=== PATIENT | female | born 1950 | race Caucasian/White ===

== ENCOUNTER → 2018-12-12 | Outpatient (CLI) | payer MEDICARE ==
[2018-12-12 23:29] LABS: Albumin 4.1 g/dL (3.80-4.90); Albumin/Globulin Ratio 1.86 (1.60-3.17); Anion Gap 7.2 mmol/L (4.00-12.00); Calcium 9.3 mg/dL (8.7-10.3); Carbon Dioxide 26.8 mmol/L (21.6-31.8); Globulin 2.2 g/dL (1.6-3.3); Potassium 4.2 mmol/L (3.5-5.5); Total Bilirubin 0.3 mg/dL (0.3-1.2); Total Protein 6.3 g/dL (6.2-8.2)
== END | disposition home or self-care (01) ==
LOC: LABWHC1 16:37
PROVIDERS: ATTEND Surgery
DX: K21.0 Gastro-esophageal reflux disease with esophagitis (principal)
CPT/HCPCS: 36415; 80053

== ENCOUNTER → 2018-12-12 | Outpatient (CLI) | payer MEDICARE ==
[2018-12-12 17:19] LABS: Basophils % (A) 1 %; Eosinophils # (A) 0.2 k/uL (0-0.7); Eosinophils % (A) 4 %; HCT 38.5 % (34.0-46.0); HGB 11.9 gm/dL (11.4-16.0); Lymphocytes # (A) 2.2 k/uL (1.0-4.8); Lymphocytes % (A) 34 %; MCH 27.4 pg (25.0-35.0); MCHC 30.9 g/dL (31.0-37.0); MCV 88.5 fL (80.0-100.0); Mean Platelet Volume 8.3; Monocytes # (A) 0.5 k/uL (0-1.0); Monocytes % (A) 7 %; Neutrophils # (A) 3.4 k/uL (1.3-7.7); Neutrophils % (A) 52 %; Platelet Count 224 k/uL (150-450); RBC 4.35 m/uL (3.80-5.40); RDW 13.8 % (11.5-15.5); WBC 6.7 k/uL (3.8-10.6)
== END | disposition home or self-care (01) ==
LOC: LABPAT 16:34
PROVIDERS: ATTEND Surgery
DX: Z01.818 Encounter for other preprocedural examination (principal); Z01.812 Encounter for preprocedural laboratory examination; K21.9 Gastro-esophageal reflux disease without esophagitis; D64.9 Anemia, unspecified
CPT/HCPCS: 36415; 85025; 93005

== ENCOUNTER → 2018-12-17 | Outpatient (CLI) | payer MEDICARE | END | disposition home or self-care (01) | LOC: LABWHC1 12:00 | PROVIDERS: ATTEND Surgery | DX: Z01.812 Encounter for preprocedural laboratory examination (principal); K21.9 Gastro-esophageal reflux disease without esophagitis; D64.9 Anemia, unspecified | CPT/HCPCS: 86850; 86900; 86901 ==

== ENCOUNTER 2018-12-25 06:19 | Day surgery (SDC) | payer MEDICARE ==
[~2018-12-25 06:19] MED LIST: LIDOCAINE 1% 20 ML VIAL (10MG/ML) FOR IV START INTRADERMA PRN; ONDANSETRON 4 MG/2 ML VIAL IVP PRN; SCOPOLAMINE 1.5MG/72HR PATCH TRANSDERM ONE; ceFAZolin IN SWFI 2 GM/20 ML SYRINGE IVP ONE
[2018-12-25] MEDS: LACTATED RINGERS 1,000 ML IV SCH (07:05)
[2018-12-25] MEDS ORDERED: LIDOCAINE 1% 20 ML VIAL (10MG/ML) FOR IV START INTRADERMA ONE (07:05)
[2018-12-25] MEDS: ONDANSETRON 4 MG/2 ML VIAL IVP ONE ×2 (07:16→14:11)
[2018-12-25] MEDS: HEPARIN SODIUM,PORCINE 5,000 UNIT/ML 1 ML VIAL SQ ONE ×2 (07:16→14:11)
[2018-12-25 07:17] LABS: Glucose,Whole Blood 95 mg/dL (75-99)
[2018-12-25] MEDS ORDERED: DEXAMETHASONE SOD PHOSPHATE 10 MG/ML 1 ML VIAL IV ONE (07:17)
--- NOTE | 2018-12-25 07:54 | P.GSHP ---
History of Present Illness H&P Date: 12/25/18 Chief Complaint: . This is a 68-year-old female with long-standing problems with reflux esophagitis. Patient's been refractory to medical therapy. She does today for laparoscopic Charley fundoplication.The patient has had long-standing problems with reflux esophagitis. The patient underwent recent EGD is found have evidence of esophagitis. Patient has been well informed on the procedure of laparoscopic Charley fundoplication. The patient is aware the risk of the conversion to the open procedure, risk of injury to the stomach, liver and spleen. The patient is also a risk of recurrent GERD and dysphagia symptoms. The patient understands there is a postoperative diet of full liquids for 2 weeks after surgery. 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-did not show on later MRI/CT History of Any Multi-Drug Resistant Organisms: MRSA Date of last positivie culture/infection: 2009 MDRO Source:: groin Past Surgical History: Cholecystectomy, Heart Catheterization, Hernia Repair, Hysterectomy Additional Past Surgical History / Comment(s): sinus surgery, EGD, colonsocopy, heart cath 2009 Past Anesthesia/Blood Transfusion Reactions: Previous Problems w/ Anesthesia, Postoperative Nausea & Vomiting (PONV) Additional Past Anesthesia/Blood Transfusion Reaction / Comment(s): general anesthesia caused memory loss for 6 months "I was too far under" Smoking Status: Former smoker - Past Family History Mother Family Medical History: No Reported History Medications and Allergies Home Medications Medication Instructions Recorded Confirmed Type Acetaminophen [Tylenol Extra 1,000 mg PO DIRECTED PRN 12/20/18 12/25/18 History Strength] Famotidine [Pepcid] 20 mg PO BID 12/20/18 12/25/18 History Fexofenadine HCl [Анна Allergy] 180 mg PO DAILY PRN 12/20/18 12/25/18 History Lidocaine HCl [Aspercreme] 1 applic TOPICAL DIRECTED PRN 12/20/18 12/20/18 History Metamucil(Dose Unknown) 1 applicate PO DIRECTED PRN 12/20/18 12/25/18 History Potassium Chloride 10 meq PO DAILY 12/20/18 12/25/18 History Ranitidine HCl [Zantac] 150 mg PO 1200 PRN 12/20/18 12/25/18 History Torsemide [Demadex] 10 mg PO DAILY 12/20/18 12/20/18 History Wp Thyroid 81.25 mg PO QAM 12/20/18 12/25/18 History clonazePAM 0.5 mg PO HS 12/20/18 12/25/18 History Allergies Allergy/AdvReac Type Severity Reaction Status Date / Time acetaminophen [From Vicodin] Allergy Abdominal Verified 12/25/18 06:47 Pain amitriptyline [From Elavil] Allergy palpitations/high Verified 12/25/18 06:47 BP Antifungal - Imidazole Allergy throat Verified 12/25/18 06:47 swells ciprofloxacin [From Cipro] Allergy Rapid Verified 12/25/18 06:47 Heart Rate clarithromycin [From Biaxin] Allergy Vomiting Verified 12/25/18 06:47 Corticosteroids Allergy high BP Verified 12/25/18 06:47 (Glucocorticoids) hydrocodone [From Vicodin] Allergy Abdominal Verified 12/25/18 06:47 Pain levofloxacin [From Levaquin] Allergy Rapid Verified 12/25/18 06:47 Heart Rate Penicillins Allergy Itching/hiv Verified 12/25/18 06:47 es Surgical - Exam Vital Signs Temp Pulse Resp BP Pulse Ox 97.0 F L 65 16 132/68 97 12/25/18 06:56 12/25/18 06:56 12/25/18 06:56 12/25/18 06:56 12/25/18 06:56 - General well developed, well nourished, no distress - Eyes PERRL - ENT normal pinna - Neck no masses - Respiratory normal expansion - Cardiovascular Rhythm: regular - Abdomen Abdomen: soft, non tender Assessment and Plan Assessment: GERD. We'll perform laparoscopic Charley fundoplication.
[2018-12-25] MEDS ORDERED: VECURONIUM 10 MG VIAL IV ONE (07:58)
[2018-12-25] MEDS ORDERED: GLYCOPYRROLATE 0.2 MG/ML 2 ML VIAL ONE (07:58)
[2018-12-25] MEDS ORDERED: fentaNYL (PF) 50 MCG/ML 2 ML AMP ONE (07:58)
[2018-12-25] MEDS ORDERED: MIDAZOLAM 2 MG/2 ML VIAL ONE (07:58)
[2018-12-25] MEDS ORDERED: SUCCINYLCHOLINE CHLORIDE 100 MG/5 ML SYR IV ONE (07:58)
[2018-12-25] MEDS ORDERED: PROPOFOL 10 MG/ML 20 ML VIAL IV ONE (07:58)
[2018-12-25] MEDS ORDERED: NEOSTIGMINE 1 MG/ML 10 ML VIAL ONE (07:58)
[2018-12-25] MEDS ORDERED: LIDOCAINE 1% INJ 10MG/ML (20 ML MDV) ONE (07:58)
[2018-12-25] MEDS ORDERED: BUPIVACAIN-EPI 0.25%-1:200,000 30 ML VIAL SQ ONE ×2 (08:26→08:35)
[2018-12-25] MEDS ORDERED: ACETAMINOPHEN TAB 325 MG TAB PO PRN (09:07)
[2018-12-25] MEDS: HYDROmorphone 0.5 MG/0.5 ML SYRINGE IVP PRN ×4 (09:13→11:20)
[2018-12-25] MEDS ORDERED: LACTATED RINGERS 1,000 ML IV ONE ×2 (10:05)
[2018-12-25] MEDS ORDERED: MIDAZOLAM (PF) 2 MG/2 ML VIAL IVP ONE (10:12)
[2018-12-25] MEDS ORDERED: ONDANSETRON 4 MG/2 ML VIAL IVP ONE (11:24)
[2018-12-25 11:46] LABS: Glucose,Whole Blood 132 mg/dL (75-99)
[2018-12-25] MEDS: D5-0.45% NACL WITH KCL 20MEQ/L 1,000 ML IV SCH ×2 (14:28→22:12)
[2018-12-25 17:25] VITALS: BMI 25.9
[2018-12-25] MEDS: ONDANSETRON 4 MG/2 ML VIAL IVP PRN (17:29)
[2018-12-25] MEDS ORDERED: TRIMETHOBENZAMIDE 100 MG/ML 2 ML VIAL IM PRN (22:06)
[2018-12-25] MEDS ORDERED: clonazePAM 0.5 MG TAB PO SCH (22:15)
[2018-12-26] MEDS: ONDANSETRON 4 MG/2 ML VIAL IVP PRN ×3 (00:40→12:51)
--- NOTE | 2018-12-26 01:26 | P.CONS ---
History of Present Illness - Reason for Consult Consult date: 12/25/18 Medical management of asthma, hypothyroidism and other medical problems - Chief Complaint Status post Charley fundoplication surgery - History of Present Illness Patient is a 68-year-old female with a known history of severe GERD symptoms, asthma, hypothyroidism, hiatal hernia and history of ulcer and other multiple medical problems was admitted to the hospital for laparoscopic Charley fundoplica tion surgery. Patient has been having severe GERD symptoms and reflux esophagitis. Currently denied any complaints of chest pain or shortness of breath. Patient is complaining of nausea and episode of emesis today afternoon. No fever no chills. Abdominal pain is controlled with medications. Patient does have some headache. Patient is able to pass flatus. Tolerating liquids. Blood pressure is in the lower side now. Review of Systems Constitutional: Patient denies any fever or chills . No generalized weakness or weight loss. Abdomen: Agent does have nausea and vomiting and abdominal soreness. No diarrhea. Cardiovascular: Patient denies any chest pain or short of breath no palpitations. Respiratory: patient denied any cough is from production. No shortness of breath Neurologic: Patient denied any numbness or tingling headache. Musculoskeletal: Patient denies any complaints of joint swelling or deformity. Skin: Negative Psychiatric: Negative Endocrine: No heat or cold intolerance. No recent weight gain. Genitourinary: No dysuria or hematuria. 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-did not show on later MRI/CT History of Any Multi-Drug Resistant Organisms: MRSA Year Discovered:: 2009 MDRO Source:: groin Past Surgical History: Cholecystectomy, Heart Catheterization, Hernia Repair, Hysterectomy Additional Past Surgical History / Comment(s): sinus surgery, EGD, colonsocopy, heart cath 2009 Past Anesthesia/Blood Transfusion Reactions: Previous Problems w/ Anesthesia, Postoperative Nausea & Vomiting (PONV) Additional Past Anesthesia/Blood Transfusion Reaction / Comm: general anesthesia caused memory loss for 6 months "I was too far under" Past Psychological History: No Psychological Hx Reported Smoking Status: Former smoker Past Alcohol Use History: None Reported Additional Past Alcohol Use History / Comment(s): quit smoking 6 yrs ago, smoked for 12 years Past Drug Use History: None Reported - Past Family History Mother Family Medical History: No Reported History Medications and Allergies Home Medications Medication Instructions Recorded Confirmed Type Acetaminophen [Tylenol Extra 1,000 mg PO DIRECTED PRN 12/20/18 12/25/18 History Strength] Famotidine [Pepcid] 20 mg PO BID 12/20/18 12/25/18 History Fexofenadine HCl [Анна Allergy] 180 mg PO DAILY PRN 12/20/18 12/25/18 History Lidocaine HCl [Aspercreme] 1 applic TOPICAL DIRECTED PRN 12/20/18 12/20/18 History Metamucil(Dose Unknown) 1 applicate PO DIRECTED PRN 12/20/18 12/25/18 History Potassium Chloride 10 meq PO DAILY 12/20/18 12/25/18 History Ranitidine HCl [Zantac] 150 mg PO 1200 PRN 12/20/18 12/25/18 History Torsemide [Demadex] 10 mg PO DAILY 12/20/18 12/20/18 History Wp Thyroid 81.25 mg PO QAM 12/20/18 12/25/18 History clonazePAM 0.5 mg PO HS 12/20/18 12/25/18 History Allergies Allergy/AdvReac Type Severity Reaction Status Date / Time acetaminophen [From Vicodin] Allergy Abdominal Verified 12/25/18 06:47 Pain amitriptyline [From Elavil] Allergy palpitations/high Verified 12/25/18 06:47 BP Antifungal - Imidazole Allergy throat Verified 12/25/18 06:47 swells ciprofloxacin [From Cipro] Allergy Rapid Verified 12/25/18 06:47 Heart Rate clarithromycin [From Biaxin] Allergy Vomiting Verified 12/25/18 06:47 Corticosteroids Allergy high BP Verified 12/25/18 06:47 (Glucocorticoids) hydrocodone [From Vicodin] Allergy Abdominal Verified 12/25/18 06:47 Pain levofloxacin [From Levaquin] Allergy Rapid Verified 12/25/18 06:47 Heart Rate Penicillins Allergy Itching/hiv Verified 12/25/18 06:47 es Physical Exam Vitals: Vital Signs Temp Pulse Pulse Pulse Resp BP BP 12/25/18 13:00 67 14 110/68 12/25/18 12:05 16 12/25/18 12:00 97.7 F 78 16 118/80 12/25/18 11:15 60 16 139/65 12/25/18 10:45 57 L 18 148/62 12/25/18 10:15 55 L 18 155/71 12/25/18 10:00 49 L 18 149/71 12/25/18 09:43 48 L 16 162/75 12/25/18 09:28 50 L 18 159/70 12/25/18 09:13 69 18 170/74 12/25/18 08:58 97.8 F 74 16 152/64 12/25/18 06:56 97.0 F L 65 16 132/68 Pulse Ox 12/25/18 13:00 99 12/25/18 12:05 96 12/25/18 12:00 90 L 12/25/18 11:15 99 12/25/18 10:45 100 12/25/18 10:15 100 12/25/18 10:00 100 12/25/18 09:43 100 12/25/18 09:28 100 12/25/18 09:13 97 12/25/18 08:58 95 12/25/18 06:56 97 Intake and Output 12/25/18 12/25/18 12/25/18 06:59 14:59 22:59 Intake Total 1350 Output Total 5 400 Balance 1345 -400 Intake: IV 1350 Output: Urine 400 Estimated Blood Loss 5 Other: # Voids 1 Weight 65.771 kg PHYSICAL EXAMINATION: Patient is lying in the bed comfortably, no acute distress, awake alert and oriented.. HEENT: Normocephalic. Neck is supple. Pupils reactive. Nostrils clear. Oral cavity is moist. Ears reveal no drainage. Neck reveals no JVD, carotid bruits, or thyromegaly. CHEST EXAMINATION: Trachea is central. Symmetrical expansion. Lung [place] clear to auscultation and percussion. CARDIAC: Normal S1, S2 with no gallops. No murmurs ABDOMEN: Soft. Bowel sounds normal. No organomegaly. No abdominal bruits. Extremities: reveal no edema. No clubbing or cyanosis Neurologically awake, alert, oriented x3 with well-coordinated movements. No focal deficits noted Skin: No rash or skin lesions. Psychiatric: Coperative. Nonsuicidal Musculoskeletal: No joint swelling or deformity. Normal range of motion. Results Labs: Abnormal Lab Results - Last 24 Hours (Table) 12/25/18 Range/Units 11:28 POC Glucose (mg/dL) 132 H (75-99) mg/dL Assessment and Plan Assessment: Hiatal hernia with reflux esophagitis. Currently status post Charley fundoplication postoperative day 0. Headache and nausea likely due to anesthesia and pain medications. Continue with symptomatic management. Osteoarthritis Hypothyroidism Asthma stable History of MS Previous history of smoking Plan: Patient be continued on gentle hydration and symptomatic management for nausea and vomiting. We will limit narcotic pain medication use. Continue with home medications including thyroid supplement. Otherwise continue the current management. We will follow up closely. Further recommendations based on the clinical course. Her CBC and BMP tomorrow. Thank you for your consult. Time with Patient: Greater than 30
[2018-12-26 03:50] VITALS: TEMP 98.2
[2018-12-26] MEDS: D5-0.45% NACL WITH KCL 20MEQ/L 1,000 ML IV SCH ×2 (06:53→12:15)
[2018-12-26] MEDS: LACTATED RINGERS 1,000 ML IV SCH (08:00)
[2018-12-26] MEDS ORDERED: THYROID 81.25 MG PO SCH ×2 (09:00)
[2018-12-26 09:15] VITALS: RESP 18
[2018-12-26] MEDS ORDERED: KETOROLAC 30 MG/ML 1 ML VIAL IVP STA (10:58)
--- NOTE | 2018-12-26 11:32 | P.DS ---
Providers Expected date of discharge: 12/26/18 Attending physician: Osvaldo Martinez Consults: 12/25/18 09:05 Consult Physician Routine Consulting Provider: Chico Gutierrez Consult Reason/Comments: Medical management Do you want consulting provider notified?: Yes Primary care physician: Natalia [facility] Course: 68-year-old female who underwent laparoscopic Charley fundoplication on 12/25/2018. Patient is doing well postoperatively without any immediate complications. She is tolerating liquid diet. Pain is well-controlled. Vital signs have been stable. She is stable for discharge home today. She is to follow up on an outpatient basis. Reiterated 2 week full liquid diet. Please see EMR for further hospital course details. Discharge diagnosis 1. GERD, status post laparoscopic Charley fundoplication Nurse practitioner note has been reviewed by physician. Signing provider agrees with the documented findings, assessment, and plan of care. Patient Condition at Discharge: Stable Plan - Discharge Summary Discharge Rx Participant: Yes New Discharge Prescriptions: New Ondansetron Odt [Zofran Odt] 4 mg PO Q8HR PRN #9 tab PRN Reason: Nausea Continue Ranitidine HCl [Zantac] 150 mg PO 1200 PRN PRN Reason: reflux Fexofenadine HCl [Анна Allergy] 180 mg PO DAILY PRN PRN Reason: Allergy Symptoms Famotidine [Pepcid] 20 mg PO BID Lidocaine HCl [Aspercreme] 1 applic TOPICAL DIRECTED PRN PRN Reason: Pain clonazePAM 0.5 mg PO HS Acetaminophen [Tylenol Extra Strength] 1,000 mg PO DIRECTED PRN PRN Reason: Pain Potassium Chloride 10 meq PO DAILY Torsemide [Demadex] 10 mg PO DAILY Wp Thyroid 81.25 mg PO QAM Metamucil(Dose Unknown) 1 applicate PO DIRECTED PRN PRN Reason: Constipation Discharge Medication List Acetaminophen [Tylenol Extra Strength] 1,000 mg PO DIRECTED PRN 12/20/18 [History] Famotidine [Pepcid] 20 mg PO BID 12/20/18 [History] Fexofenadine HCl [Анна Allergy] 180 mg PO DAILY PRN 12/20/18 [History] Lidocaine HCl [Aspercreme] 1 applic TOPICAL DIRECTED PRN 12/20/18 [History] Metamucil(Dose Unknown) 1 applicate PO DIRECTED PRN 12/20/18 [History] Potassium Chloride 10 meq PO DAILY 12/20/18 [History] Ranitidine HCl [Zantac] 150 mg PO 1200 PRN 12/20/18 [History] Torsemide [Demadex] 10 mg PO DAILY 12/20/18 [History] Wp Thyroid 81.25 mg PO QAM 12/20/18 [History] clonazePAM 0.5 mg PO HS 12/20/18 [History] Ondansetron Odt [Zofran Odt] 4 mg PO Q8HR PRN #9 tab 12/26/18 [Rx] Follow up Appointment(s)/Referral(s): Natalia Martínez DO [Primary Care Provider] - 1 Week Osvaldo Martinez MD [STAFF PHYSICIAN] - 2 Weeks Activity/Diet/Wound Care/Special Instructions: Full liquid diet for two weeks No lifting over 10 pounds You may shower. No soaking or tub baths Very light activity until you are reevaluated at your follow up appointment with your surgeon Discharge Disposition: HOME SELF-CARE
[2018-12-26 11:41] LABS: African American GFR (CKD) >90 (>60 ml/min/1.73 sqM); Anion Gap 10 mmol/L; Blood Urea Nitrogen 9 mg/dL (7-17); Calcium 9.6 mg/dL (8.4-10.2); Carbon Dioxide 22 mmol/L (22-30); Chloride 111 mmol/L (98-107); Glucose 102 mg/dL (74-99); Potassium 4.3 mmol/L (3.5-5.1); Sodium 143 mmol/L (137-145)
[2018-12-26 11:42] LABS: Basophils % (A) 0 %; Eosinophils # (A) 0.1 k/uL (0-0.7); Eosinophils % (A) 1 %; HCT 42.1 % (34.0-46.0); HGB 12.9 gm/dL (11.4-16.0); Hypochromasia Moderate; Lymphocytes # (A) 2.7 k/uL (1.0-4.8); Lymphocytes % (A) 20 %; MCH 27.2 pg (25.0-35.0); MCHC 30.5 g/dL (31.0-37.0); MCV 89.2 fL (80.0-100.0); Mean Platelet Volume 8.4; Monocytes # (A) 0.8 k/uL (0-1.0); Monocytes % (A) 6 %; Neutrophils # (A) 9.9 k/uL (1.3-7.7); Neutrophils % (A) 72 %; Platelet Count 243 k/uL (150-450); RBC 4.72 m/uL (3.80-5.40); RDW 14.1 % (11.5-15.5); WBC 13.9 k/uL (3.8-10.6)
[2018-12-26 11:59] VITALS: BP 134/83; PULSE 77
--- NOTE | 2018-12-26 12:24 | FL ---
EXAMINATION TYPE: FL esophagus cervic/pharynx DATE OF EXAM: 12/26/2018 CLINICAL HISTORY: Status post Kwasi fundoplication. TECHNIQUE: Limited esophagram is performed utilizing 20 oz of Omnipaque 350. A total of 1 minute and 29 seconds of fluoroscopic time was utilized during procedure. 0 fluoroscopic images were able to be saved. FINDINGS: The patient swallowed contrast without difficulty or delay. Esophageal peristalsis and mo tility are within normal limits. There is moderately delayed flow of contrast along the diaphragmatic hiatus into the stomach, there is no evidence of contrast extravasation to suggest leak. No persiste nt hiatal hernia is seen. Patient remains asymptomatic. IMPRESSION: No evidence of leak. Moderately delayed flow along the gastroesophageal junction likely r elated to postoperative edema status post Kwasi fundoplication.
--- NOTE | 2018-12-26 12:35 | P.PN ---
Subjective Patient is a 68-year-old female with a known history of severe GERD symptoms, asthma, hypothyroidism, hiatal hernia and history of ulcer and other multiple medical problems was admitted to the hospital for laparoscopic Charley fundoplication surgery. Patient has been having severe GERD symptoms and reflux esophagitis. Currently denied any complaints of chest pain or shortness of breath. Patient is complaining of nausea and episode of emesis today afternoon. No fever no chills. Abdominal pain is controlled with medications. Patient does have some headache. Patient is able to pass flatus. Tolerating liquids. Blood pressure is in the lower side now. 12/26/2018 Patient is seen in the general medical floor for follow-up.she is status post laparoscopic Charley fundoplication for GERD, today is postoperative day #1.patient is doing fine with minimal pain that's controlled with Tylenol. She is tolerating liquid diet. She is walking the hallway. Repeat blood pressureis 134/83 with heart rate 77, she is saturating 98% on room air.labs reviewed showing WBC of 13.9 K. Electrolytes and creatinine are within normal limits. Glucose 102. pt complaining from pain on her both shoulder which is expected after the surgery as per staff and surgical team. this is been treated symptomatically. pt is informed about her high white cell count and states she has appointment with her pcp tomorrow and she is going ot ask him to check her b lood test with him , was at bed side d/s staff Objective - Vital Signs Vital signs: Vital Signs Temp 98.2 F 12/26/18 08:45 Pulse 69 12/26/18 08:45 Resp 18 12/26/18 09:45 BP 94/73 12/26/18 08:45 Pulse Ox 96 12/26/18 08:45 Intake & Output 12/25/18 12/26/18 12/26/18 18:59 06:59 18:59 Intake Total 1350 Output Total 405 800 Balance 945 -800 Weight 65.771 kg Intake: IV 1350 Output: Urine 400 800 Estimated Blood Loss 5 Other: # Voids 1 1 - Exam Patient is lying in the bed comfortably, no acute distress, awake alert and oriented.. HEENT: Normocephalic. Neck is supple. Pupils reactive. Nostrils clear. Oral c avity is moist. Ears reveal no drainage. Neck reveals no JVD, carotid bruits, or thyromegaly. CHEST EXAMINATION: Trachea is central. Symmetrical expansion. Lung [place] clear to auscultation and percussion. CARDIAC: Normal S1, S2 with no gallops. No murmurs ABDOMEN: Soft. Bowel sounds normal. No organomegaly. No abdominal bruits. Extremities: reveal no edema. No clubbing or cyanosis Neurologically awake, alert, oriented x3 with well-coordinated movements. No focal deficits noted Skin: No rash or skin lesions. Psychiatric: Coperative. Nonsuicidal Musculoskeletal: No joint swelling or deformity. Normal range of motion. - Labs CBC & Chem 7: 12/26/18 11:17 12/26/18 11:17 Labs: Abnormal Lab Results - Last 24 Hours (Table) 12/26/18 12/26/18 Range/Units 11:17 11:17 WBC 13.9 H (3.8-10.6) k/uL MCHC 30.5 L (31.0-37.0) g/dL Neutrophils # 9.9 H (1.3-7.7) k/uL Chloride 111 H (98-107) mmol/L Glucose 102 H (74-99) mg/dL Assessment and Plan Assessment: Hiatal hernia with reflux esophagitis. Currently status post Charley fundoplication postoperative day 1 Headache and nausea likely due to anesthesia and pain medications. resolved Osteoarthritis Hypothyroidism Asthma stable History of MS Previous history of smoking Plan: Plan: Patient be continued on gentle hydration and symptomatic management for nausea and vomiting. We will limit narcotic pain medication use. Continue with home medications including thyroid supplement. Otherwise continue the current management. patient has mild leukocytosis but no signs or symptoms of infection. Antibiotics at this point looks inappropriate as they have more risks than benefits , Further recommendations based on the clinical course. Her CBC and BMP tomorrow. most likely patient has reactive leukocytosis and recommended close follow-up for her white cell count. Also recommend the patient to follow-up with her PCP in one week. patient was informed about these problems and recommendations.
--- NOTE | 2019-01-06 14:29 | P.OP ---
Date of Procedure: 12/25/18 Preoperative Diagnosis: GERD Postoperative Diagnosis: GERD Procedure(s) Performed: Laparoscopic Charley fundal plication Anesthesia: BEENA Surgeon: Osvaldo Martinez Estimated Blood Loss (ml): 5 Pathology: none sent Condition: stable Disposition: PACU Description of Procedure: The patient was placed on the operating table in the supine position. The patient received general anesthesia. And was placed in dorsal lithotomy position. The patient was prepped and draped in the usual sterile fashion. The skin incision sites were anesthetized with 1% local Xylocaine. The skin was incised in the left periumbilical area and then using a blade less 5 mm trocar under direct visualization panel cavity was entered. After adequate insufflation the laparoscope was then placed into the peritoneal cavity. Next a 5 mm trochars placed in the right epigastric position. Another 5 millimeter trocar the right lateral position. Another 5 millimeter trocar in the left lateral position a 5 mm trocar is placed in the left epigastric position. And then the initial 5 mm trocar was exchanged for a 10 mm trocar. The left lateral lobe liver was retracted. The hernia was seen. The crural defect was then dissected using the Harmonic scissors device. A 360 crural dissection was p erformed the esophagus stomach was reduced back into the peritoneal Cavity. The crural defect was then closed using 2-0 Ethibond suture. Next the fundus of the stomach was mobilized using the Dickerson scissors device. and then a 58-Ivorian bougie dilator was placed oropharynx passed into the esophagus and stomach the fundal plication wrap was then performed by grasping the fundus posteriorly and bringing it around the esophagus and stomach fundoplication was then performed using 2-0 Ethibond suture. Care was taken that the fundal location rested over top of the intra-abdominal esophagus. There was no injury seen to the stomach or esophagus. The dilator was then withdrawn. The abdomen was irrigated there is no bleeding seen. The trochars were then withdrawn and then skin incision sites were closed using 3-0 Monocryl suture Steri-Strips are applied. Patient thought procedure well and sent to recovery room in stable condition.
== END 2018-12-26 13:05 | disposition home or self-care (01) ==
LOC: OR 06:19 → 6PED 11:21 → OR 12-26 13:05
PROVIDERS: ATTEND Surgery
DX: K21.0 Gastro-esophageal reflux disease with esophagitis (principal); J45.909 Unspecified asthma, uncomplicated; E03.9 Hypothyroidism, unspecified; E78.5 Hyperlipidemia, unspecified; H91.90 Unspecified hearing loss, unspecified ear; E06.3 Autoimmune thyroiditis; K44.9 Diaphragmatic hernia without obstruction or gangrene; M19.90 Unspecified osteoarthritis, unspecified site; D64.9 Anemia, unspecified; I87.2 Venous insufficiency (chronic) (peripheral); R51 Headache; G35 Multiple sclerosis; Z88.0 Allergy status to penicillin; Z88.1 Allergy status to other antibiotic agents; Z88.5 Allergy status to narcotic agent; Z98.890 Other specified postprocedural states; Z87.891 Personal history of nicotine dependence; Z86.14 Personal history of Methicillin resistant Staphylococcus aureus infection; Z85.118 Personal history of other malignant neoplasm of bronchus and lung; Z87.442 Personal history of urinary calculi; G62.9 Polyneuropathy, unspecified; Z90.710 Acquired absence of both cervix and uterus; Z82.49 Family history of ischemic heart disease and other diseases of the circulatory system; Z83.3 Family history of diabetes mellitus; Z82.3 Family history of stroke; Z88.2 Allergy status to sulfonamides; Z88.8 Allergy status to other drugs, medicaments and biological substances
CPT/HCPCS: 43280; 80048; 85025; 74210; J2250 ×2; J1644; J1100; J2710; J2405 ×2; J2001; J3010; J1885; J0330; J2704; J1170; J0690; Q9967; 86850; 86900; 86901